=== PATIENT | female | born 1955 | race African-American/Black ===

== ENCOUNTER 2017-12-29 16:24 | Emergency (ER) | payer MEDICAID ==
[~2017-12-29] VITALS: Ht 160 cm; Wt 109.0 kg
[~2017-12-29 16:24] MED LIST: ALPR1TAB2 PO; DILT180C66 PO; DULO60CA44 PO; ESOM40CA PO; FERR-43 PO; HYDR-519 PO; METF500T6 PO; OMEP20TA15 PO; POTA8TAB4 PO; PRAV20TA57 PO; QUET300T2 PO; SYMBICORT; VALS1TAB34 PO
[2017-12-29] MEDS ORDERED: SODIUM CHLORIDE 0.9% 1,000 ML IV ONE (17:47)
[2017-12-29 19:31] LABS: BASOPHILS % 0.7 % (0.0-2.0); EOSINOPHILS % 1.7 % (0.0-5.0); HEMATOCRIT. 45.8 % (36.0-48.0); HEMOGLOBIN. 14.6 g/dL (12.0-16.0); LYMPHOCYTES % 39.2 % (20.0-50.0); MEAN CORPUSCULAR HEMOGLOBIN 24.8 pg (28.0-32.0); MEAN CORPUSCULAR VOLUME 77.9 fL (81.0-99.0); MEAN PLATELET VOLUME 8.1 fl (7.4-10.4); MONOCYTES % 6.8 % (2.0-8.0); NEUTROPHILS % 51.6 % (40.0-76.0); PLATELET 253 x1000/uL (130-400); RED BLOOD CELL COUNT 5.88 mill/uL (4.2-5.4); RED CELL DISTRIBUTION WIDTH 20.1 % (11.6-14.6)
[2017-12-29 19:33] LABS: CHLORIDE 108 mEq/L (98-107); INR 1.1; PROTHROMBIN TIME 11.3 sec (9.1-11.1)
[2017-12-29] MEDS ORDERED: FAMOTIDINE 20MG/2ML VIAL IV STA (23:20)
[2017-12-29] MEDS ORDERED: MORPHINE SULFATE 4 MG/ML CPJ (NOT FOR IM USE) IV STA (23:20)
[2017-12-29] MEDS ORDERED: METOCLOPRAMIDE HCL 10MG/2ML VIAL IV STA (23:20)
[2017-12-29 23:47] LABS: CLARITY URINE CLOUDY (CLEAR); COLOR URINE DARK YELLOW (YELLOW); KETONES URINE NEGATIVE (NEGATIVE); LEUKOCYTE ESTERASE URINE TRACE (NEGATIVE); NITRITE URINE NEGATIVE (NEGATIVE); OCCULT BLOOD URINE NEGATIVE (NEGATIVE); PH URINE 5.5 (4.5-8.0); PROTEIN URINE NEGATIVE (NEGATIVE); SPECIFIC GRAVITY URINE 1.022 (1.005-1.030)
[2017-12-30 04:25] VITALS: BP 144/77
== END 2017-12-30 04:50 | disposition home or self-care (01) ==
LOC: ER 16:24
DX: R10.13 Epigastric pain (principal); K85.90 Acute pancreatitis without necrosis or infection, unspecified; E11.9 Type 2 diabetes mellitus without complications; I10 Essential (primary) hypertension; F17.200 Nicotine dependence, unspecified, uncomplicated; Z88.1 Allergy status to other antibiotic agents; Z88.3 Allergy status to other anti-infective agents; Z87.11 Personal history of peptic ulcer disease; Z79.84 Long term (current) use of oral hypoglycemic drugs
CPT/HCPCS: 36415; 71045; 74176; 76705; 80053; 81003; 82962; 83690; 84484; 85025; 85610; 93005; 96374; 96375; 99285; J2270; J2765; J3490; J7040; Z7610

== ENCOUNTER 2018-02-10 18:27 | Emergency (ER) | payer MEDICAID ==
[~2018-02-10] VITALS: Ht 160 cm; Wt 102.0 kg
[2018-02-10] MEDS ORDERED: PREDNISONE 20MG TABLET PO ONE (20:30)
[2018-02-10] MEDS ORDERED: MORPHINE SULFATE 10 MG/ML CPJ IM ONE (20:30)
[2018-02-10 20:58] LABS: BASOPHILS % 1.1 % (0.0-2.0); EOSINOPHILS % 2.5 % (0.0-5.0); HEMATOCRIT. 45.3 % (36.0-48.0); HEMOGLOBIN. 14.5 g/dL (12.0-16.0); LYMPHOCYTES % 40.8 % (20.0-50.0); MEAN CORPUSCULAR HEMOGLOBIN 25.7 pg (28.0-32.0); MEAN CORPUSCULAR VOLUME 80.4 fL (81.0-99.0); MONOCYTES % 6.3 % (2.0-8.0); NEUTROPHILS % 49.3 % (40.0-76.0); PLATELET 248 x1000/uL (130-400); RED BLOOD CELL COUNT 5.63 mill/uL (4.2-5.4)
[2018-02-10 21:05] LABS: CHLORIDE 104 mEq/L (98-107)
[2018-02-11 00:02] VITALS: BP 133/85
== END 2018-02-11 00:05 | disposition home or self-care (01) ==
LOC: ER 18:51
DX: M70.12 Bursitis, left hand (principal); E11.9 Type 2 diabetes mellitus without complications; I10 Essential (primary) hypertension; F17.200 Nicotine dependence, unspecified, uncomplicated; Y93.89 Activity, other specified; Z88.1 Allergy status to other antibiotic agents; Z88.8 Allergy status to other drugs, medicaments and biological substances; Z79.899 Other long term (current) drug therapy; Z96.653 Presence of artificial knee joint, bilateral
CPT/HCPCS: 36415; 73130; 80053; 84550; 85025; 96372; 99285; J2270; J7512

== ENCOUNTER 2019-03-09 20:52 | Emergency (ER) | payer MEDICAID ==
[~2019-03-09] VITALS: Ht 160 cm; Wt 95.0 kg
[~2019-03-09 20:52] MED LIST changes: +METF-414 PO; -METF500T6 PO
[2019-03-09 21:46] VITALS: BP 123/93
[2019-03-18] MEDS ORDERED: IPRA3AMP9 NEB (12:25)
[2019-03-18] MEDS ORDERED: LEVO750T21 MT (12:25)
[2019-03-18] MEDS ORDERED: GUAI600T26 MT (12:25)
[2019-03-18] MEDS ORDERED: D-ME473S8 MT (12:25)
[2019-03-18] MEDS ORDERED: NICO-645 TP (12:26)
== END 2019-03-10 00:56 | disposition left against medical advice (07) ==
LOC: ER 20:52
DX: R05 Cough (principal); R06.02 Shortness of breath; R09.81 Nasal congestion; Z53.21 Procedure and treatment not carried out due to patient leaving prior to being seen by health care provider

== ENCOUNTER 2021-09-20 12:06 | Emergency (ER) | payer MEDICAID ==
[~2021-09-20] VITALS: Ht 160 cm; Wt 104.0 kg
[~2021-09-20 12:06] MED LIST changes: +D-ME473S8 MT; -DULO60CA44 PO; -ESOM40CA PO; +GUAI600T26 MT; +IPRA3AMP9 NEB; +LEVO750T21 MT; +NICO-645 TP; -OMEP20TA15 PO; -SYMBICORT; -VALS1TAB34 PO
[2021-09-20 13:27] VITALS: BP 125/60
[2021-09-20 15:47] LABS: BASOPHILS % 1.3 % (0.0-2.0); EOSINOPHILS % 1.4 % (0.0-5.0); HEMATOCRIT. 33.9 % (36.0-48.0); HEMOGLOBIN. 10.3 g/dL (12.0-16.0); LYMPHOCYTES % 24.9 % (20.0-50.0); MEAN CORPUSCULAR HEMOGLOBIN 22.8 pg (28.0-32.0); MEAN CORPUSCULAR VOLUME 75.2 fL (81.0-99.0); MONOCYTES % 7.7 % (2.0-8.0); NEUTROPHILS % 64.7 % (40.0-76.0); PLATELET 418 x1000/uL (130-400); RED BLOOD CELL COUNT 4.51 mill/uL (4.2-5.4); RED CELL DISTRIBUTION WIDTH 17.2 % (11.6-14.6)
[2021-09-20 15:56] LABS: CHLORIDE 110 mEq/L (98-107)
[2021-09-20 16:27] LABS: CLARITY URINE CLEAR (CLEAR); COLOR URINE YELLOW (YELLOW); KETONES URINE NEGATIVE (NEGATIVE); LEUKOCYTE ESTERASE URINE 1+ (NEGATIVE); NITRITE URINE POSITIVE (NEGATIVE); OCCULT BLOOD URINE NEGATIVE (NEGATIVE); PH URINE 5.5 (4.5-8.0); PROTEIN URINE NEGATIVE (NEGATIVE); SPECIFIC GRAVITY URINE 1.022 (1.005-1.030)
[2021-09-20] MEDS ORDERED: LACT10SO6 MT ×2 (20:02→20:23)
[2021-09-20] MEDS ORDERED: NITR-87 MT ×2 (20:02→20:23)
[2021-09-20] MEDS ORDERED: METO-293 MT ×2 (20:02→20:23)
== END 2021-09-20 21:42 | disposition home or self-care (01) ==
LOC: ER 13:03
DX: K59.09 Other constipation (principal); N39.0 Urinary tract infection, site not specified; I10 Essential (primary) hypertension; E11.9 Type 2 diabetes mellitus without complications; D64.9 Anemia, unspecified
CPT/HCPCS: 36415; 74176; 80053; 81003; 85025; 87077; 87186; 99284